=== PATIENT | male | born 1955 ===

== ENCOUNTER 2020-01-03 14:18 | Emergency (ER) | payer OTHER, SELFPAY ==
--- NOTE | ~2020-01-03 | XR_ITS ---
EXAMINATION: XR finger 1st RT min 2V INDICATION: Right first finger pain TECHNIQUE: Right first finger are obtained. COMPARISON: None available FINDINGS: There is no fracture, dislocation, or subluxation. Mild osteoarthritis is noted. The soft t issues are unremarkable. IMPRESSION: 1. No acute osseous abnormality. Reviewed, dictated and finalized at location A.
--- NOTE | 2020-01-03 14:30 | ED.GENADULT ---
HPI - General Adult General Chief complaint: Extremity Injury, Upper Stated complaint: Right Thumb Pain Time Seen by Provider: 01/03/20 14:30 Source: patient Mode of arrival: ambulatory Limitations: no limitations History of Present Illness HPI narrative: 64-year-old male patient presents to the [facility] with complaints of right thumb pain that started yesterday. Patient states that he did have a right shoulder injury recently that he just finished some steroids for. Patient states that he is supposed to have a CT for his shoulder injury coming up next week. Patient states that he has had pain to the forearm that extends to his first and second digits but that is not necessarily new. Patient states that the swelling, redness and pain to the right thumb on the distal joint just started yesterday. Patient states it is painful to the touch. Denies any specific injury to the area that he can remember. Patient states he has been doing a lot of work around the house as well as yard work the last couple of days. Patient denies taking anything for his pain yesterday or today. Patient does have history of type 2 diabetes. Related Data Home Medications Medication Instructions Recorded Confirmed amlodipine 05/06/19 atorvastatin 05/06/19 baclofen mg 05/06/19 carvedilol 05/06/19 celecoxib mg 05/06/19 finasteride mg 05/06/19 latanoprost 05/06/19 lisinopril 05/06/19 metformin mg 05/06/19 tamsulosin mg PO 05/06/19 timolol maleate 05/06/19 dapagliflozin [Farxiga] mg 01/03/20 duloxetine mg PO 01/03/20 Allergies Allergy/AdvReac Type Severity Reaction Status Date / Time No Known Allergies Allergy Unverified 01/03/20 14:43 Review of Systems Review of Systems: Narrative: CONSTITUTIONAL: Denies fever, chills, or sweats. EYES: Denies visual changes, redness, or discharge. ENT: Denies rhinorrhea, congestion, sore throat, or otalgia. CARDIOVASCULAR: Denies chest pain, palpitations, or edema. RESPIRATORY: Denies cough or dyspnea. GASTROINTESTINAL: Denies abdominal pain, nausea, vomiting, or diarrhea. GENITOURINARY: Denies dysuria or hematuria. SKIN: Denies rash or itching. MUSCULOSKELETAL: Denies back pain, joint pain, or myalgia. Positive right thumb pain NEUROLOGIC: Denies headache, numbness, or weakness. PSYCHIATRIC: Denies anxiety or depression. [facility] Past Medical History Medical History (Updated 01/03/20 @ 15:11 by VANESSA Andujar) Type 2 diabetes mellitus Comments At the time of my signature I agree with nursing past medical history, surgical, social, and family history. There is no relevant family history pertinent to the presenting complaint. Exam Narrative: Exam Narrative: GENERAL: Well-appearing, well-nourished, and in no acute distress. HEAD: Normocephalic, atraumatic. EYES: PERRLA and EOMI. ENT: Nares clear, no rhinorrhea or epistaxis. Mucous membranes moist. NECK: Supple. No lymphadenopathy CHEST: Clear to auscultation. No respiratory distress. HEART: Regular rate and rhythm. No murmur heard. Normal peripheral pulses. ABDOMEN: Soft, nontender, nondistended, normal active bowel sounds. EXTREMITIES: The R hand is without obvious asymmetry or deformity when compared to the L hand. There is swelling, erythema and slight warmth noted to the DIP joint of the right thumb. No surface trauma, open wounds, nail avulsion, tissue avulsion, partial or complete amputation, subungual hematoma, bony deformity. Normal cascade of fingers. Decreased flexion and normal extension of right thumb. FDS and FDP intact aganist restistance. No focal fullness, thobbing pain. Pulses and cap refill. SKIN: Warm, dry, no rash. NEURO: No focal deficits. Alert and oriented x3. Course Reevaluation(s) Reevaluation #1: Reevaluated patient after x-ray resulted. Discussed with him that the x-ray does not show any acute fractures at this time. Discussed with him I am suspicious that this could possibly be a gout flareup. Off
[2020-01-03 14:32] VITALS: BP 123/81; PULSE 83; RESP 16; TEMP 37; O2SAT 100
== END 2020-01-03 15:15 | disposition home or self-care (01) ==
PROVIDERS: Emergency Provider Nurse Practitioner Family; PCP Internal Medicine
DX: M10.9 Gout, unspecified (principal); E11.9 Type 2 diabetes mellitus without complications; E78.00 Pure hypercholesterolemia, unspecified; H40.9 Unspecified glaucoma
CPT/HCPCS: 73140; 99213; G0463

== ENCOUNTER 2020-08-13 19:03 | Emergency (ER) | payer OTHER, SELFPAY ==
--- NOTE | ~2020-08-13 | XR_ITS ---
EXAMINATION: XR clavicle RT DATE: 08/13/2020 19:37 INDICATION: Right clavicle pain. TECHNIQUE: 2 views of right clavicle were obtained. COMPARISON: Chest 2 views 06/05/2018 FINDINGS: Bone alignment is normal. No fracture. There may be changes of distal clavicle resection an d acromioplasty. Glenohumeral joint is normal. There is mild calcific tendinitis of the rotator cuff. IMPRESSION: 1. Mild calcific tendinitis of the rotator cuff. Reviewed, dictated and finalized at location A.
[2020-08-13 19:17] VITALS: BP 142/92; PULSE 87; RESP 16; TEMP 36.4; O2SAT 99
--- NOTE | 2020-08-13 19:33 | ED.GENADULT ---
HPI - General Adult General Chief complaint: Neck Pain/Injury Stated complaint: Collar Bone Pain Time Seen by Provider: 08/13/20 19:23 Source: patient and RN notes reviewed Mode of arrival: ambulatory Limitations: no limitations History of Present Illness HPI narrative: 65-year-old male presents with concern for right clavicle pain, swelling. 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 Reports he has had problems with the area since then, reports today while lawnmowing and doing pushing and pulling motions his clavicle pain worsened. Reports he has been seen for his shoulder joint pain and is going to be having surgery for a rotator cuff tear. He denies any new trauma, direct injury. Denies worsening pain with deep breathing, denies shortness of breath or coughing. Reports clavicle pain worsens with right arm movement. MD complaint: Clavicle pain Related Data Home Medications Medication Instructions Recorded Confirmed amlodipine 10 mg PO DAILY 05/06/19 08/13/20 atorvastatin 40 mg PO DAILY 05/06/19 08/13/20 latanoprost 1 drp EACH EYE HS 05/06/19 08/13/20 lisinopril 40 mg PO DAILY 05/06/19 08/13/20 metformin 1,000 mg PO DAILY 05/06/19 08/13/20 tamsulosin 0.4 mg PO DAILY 05/06/19 08/13/20 timolol maleate 0.25 % OPHTHALMIC (EYE) DAILY 05/06/19 01/03/20 dapagliflozin [Farxiga] 5 mg PO DAILY 01/03/20 08/13/20 meloxicam 7.5 mg PO DAILY 08/13/20 08/13/20 Allergies Allergy/AdvReac Type Severity Reaction Status Date / Time No Known Allergies Allergy Verified 08/13/20 19:13 Review of Systems Review of Systems: Narrative: CONSTITUTIONAL: Denies malaise, chills, sweats, or fever. CARDIOVASCULAR: Denies chest pain, palpitations, or edema. RESPIRATORY: Denies cough or dyspnea. SKIN: Denies bruising, redness MUSCULOSKELETAL: Reports right clavicle pain, swelling, deformity NEUROLOGIC: Denies numbness, weakness All systems reviewed & are unremarkable except as noted in HPI and below PMFSH Past Medical History Medical History (Updated 08/13/20 @ 19:54 by Shelby Childers NP) Type 2 diabetes mellitus Comments At time of signature, agree with nursing past medical, surgical, social and family history. There is no relevant family history pertinent to the presenting complaint Exam Narrative: Exam Narrative: GENERAL: Well-appearing, well-nourished, and in no acute distress. HEAD: Normocephalic, atraumatic. EYES: PERRLA, conjunctivae clear ENT:Mucous membranes moist. NECK: Supple. No lymphadenopathy. No jugular venous distension, CHEST: No respiratory distress. Clear to auscultation. No asymmetry. Speaks in full sentences. Mild edema noted over right clavicle with possible deformity, tender HEART: Regular rate and rhythm. No murmur heard. EXTREMITIES: Right upper extremity has normal range of motion, no edema, normal strength and sensation. SKIN: Warm, dry, no rash. No ecchymosis, erythema noted to right clavicle area NEURO: Alert and oriented x3. PSYCH: Normal mood and affect Course Course Emergency Course: Patient is aware of diagnosis, understands and agrees to treatment plan. Anticipatory guidance given. Patient agrees to follow-up as directed and is aware of reasons to seek care at the emergency department. Portions of this record may have been created with voice recognition software Vital Signs Vital signs: Vital Signs Temperature 97.5 F L 08/13/20 19:17 Pulse Rate 87 08/13/20 19:17 Respiratory Rate 16 08/13/20 19:17 Blood Pressure 142/92 H 08/13/20 19:17 Pulse Oximetry 99 08/13/20 19:17 Temperature 97.5 F L 08/13/20 19:17 Pulse Rate 87 08/13/20 19:17 Respiratory Rate 16 08/13/20 19:17 Blood Pressure 142/92 H 08/13/20 19:17 Pulse Oximetry 99 08/13/20 19:17 Reviewed. Patient has history of hypertension Medical Decision Making MDM Narrative Medical decision making narrative: Patients pain is consistent with musculoskeletal etiology. No signs of neur
== END 2020-08-13 19:58 | disposition home or self-care (01) ==
PROVIDERS: Emergency Provider Nurse Practitioner; PCP Internal Medicine
DX: M25.511 Pain in right shoulder (principal); E78.00 Pure hypercholesterolemia, unspecified; I10 Essential (primary) hypertension; E11.39 Type 2 diabetes mellitus with other diabetic ophthalmic complication; H42 Glaucoma in diseases classified elsewhere
CPT/HCPCS: 73000; 99213; G0463